=== PATIENT | female | born 1960 | race Caucasian/White ===

== ENCOUNTER → 2016-08-02 | Outpatient (CLI) | payer BC ==
--- NOTE | 2016-08-02 13:57 | MAMMOGRAPHY REPORT ---
BILATERAL DIGITAL SCREENING MAMMOGRAM WITH CAD: 08/02/2016 CLINICAL HISTORY: Routine screening. Patient has no complaints. TECHNIQUE: Current study was also evaluated with a Computer Aided Detection (CAD) system. Bilatera l CC and MLO views were obtained. COMPARISON: Comparison is made to exams dated: 07/31/2015 mammogram, 07/21/2013 mammogram, 07/16/2012 m ammogram, 07/11/2011 mammogram, 07/06/2010 mammogram, and 07/05/2009 mammogram - [facility]. BREAST COMPOSITION: There are scattered areas of fibroglandular density in both breasts. FINDINGS: No suspicious masses, calcifications, or areas of architectural distortion are noted in e ither breast. There has been no significant interval change compared to prior exams. IMPRESSION: ACR BI-RADS CATEGORY 1: NEGATIVE There is no mammographic evidence of malignancy. A 1 year screening mammogram is recommended. The p atient will receive written notification of the results. Approximately 10% of breast cancers are not detected with mammography. A negative mammographic repor t should not delay biopsy if a clinically suggestive mass is present. Sabrina Lara M.D. /:08/02/2016 07:50:31 Agricultural Specialist: Deisi KERN(R)(M), [facility] letter sent: Normal 1/2 BI-RADS Code: ACR BI-RADS Category 1: Negative
== END | disposition home or self-care (01) ==
LOC: C.MAMM 07:31
PROVIDERS: ATTEND Student in an Organized Health Care Education/Training Program
DX: Z12.31 Encounter for screening mammogram for malignant neoplasm of breast (principal)

== ENCOUNTER → 2017-09-05 | Outpatient (CLI) | payer OTHER ==
--- NOTE | 2017-09-05 15:04 | MAMMOGRAPHY REPORT ---
BILATERAL DIGITAL SCREENING MAMMOGRAM TOMOSYNTHESIS WITH CAD: 09/05/2017 CLINICAL HISTORY: Routine screening. Patient has no complaints. TECHNIQUE: Breast tomosynthesis in addition to standard 2D mammography was performed. Current study was also evaluated with a Computer Aided Detection (CAD) system. COMPARISON: Comparison is made to exams dated: 08/02/2016 mammogram, 07/31/2015 mammogram, 07/27/2014 m ammogram, 07/21/2013 mammogram, 07/16/2012 mammogram, and 07/11/2011 mammogram - [facility]. BREAST COMPOSITION: There are scattered areas of fibroglandular density in both breasts. FINDINGS: No suspicious masses, calcifications, or areas of architectural distortion are noted in ei ther breast. There has been no significant interval change compared to prior exams. IMPRESSION: ACR BI-RADS CATEGORY 1: NEGATIVE There is no mammographic evidence of malignancy. A 1 year screening mammogram is recommended. The pa tient will receive written notification of the results. Approximately 10% of breast cancers are not detected with mammography. A negative mammographic report should not delay biopsy if a clinically suggestive mass is present. Sabrina Lara M.D. ah/:09/05/2017 07:43:09 Vending Machine Assembler: Jelena KERN(Viki)(M), [facility] letter sent: Normal 1/2 BI-RADS Code: ACR BI-RADS Category 1: Negative
== END | disposition home or self-care (01) ==
LOC: C.MAMM 07:18
PROVIDERS: ATTEND Student in an Organized Health Care Education/Training Program
DX: Z12.31 Encounter for screening mammogram for malignant neoplasm of breast (principal)

== ENCOUNTER 2019-06-22 04:43 | Observation (INO) ==
--- NOTE | 2019-06-15 14:02 | PAT Medication Instructions ---
Medication Instructions Date of Service June 15, 2019 Home Medications simvastatin 20 mg tablet 20 mg PO QPM trazodone 50 mg tablet 50 mg PO HS venlafaxine 150 mg capsule,extended release 24 hr 150 mg PO QAM Fish Oil 1 cap PO QAM multivitamin 1 tab PO QAM STOP taking 2 weeks before surgery (or as soon as possible if surgery is within 2 weeks) Fish Oil 1 cap PO QAM Take morning of surgery With a small sip of water, OTHERWISE NOTHING TO EAT OR DRINK AFTER MIDNIGHT: venlafaxine 150 mg capsule,extended release 24 hr 150 mg PO QAM Take evening before surgery simvastatin 20 mg tablet 20 mg PO QPM trazodone 50 mg tablet 50 mg PO HS Other Notes If you have any questions please call us at [phone] or [phone] or [phone] or [phone]
--- NOTE | 2019-06-16 08:51 | Anesthesiology Consultation ---
Date of Service June 16, 2019 Assessment & Plan (1) Encounter for pre-operative examination: Chart Review Chart Review: Acceptable Risk for Surgery and Patient seen in Pre Admission Testing Teaching & Discussion Pre-Anesthesia Teaching/Discussion Notes: Instructed NPO after midnight before surgery,except medications with 15 cc of water. Medication instructions provided according to the PAT guidelines. History Surgery Operation Date: 06/22/19 10:40 Proposed Procedures p Right Total Hip Arthroplasty - Berto Acosta MD Height/Weight Height: 5 ft 4 in Weight: 76.1 kg Allergies Allergy/AdvReac Type Severity Reaction Status Date / Time codeine Allergy Mild NAUSEA Verified 06/15/19 10:16 Medications Home Medications Medication Instructions Recorded Confirmed Last Taken simvastatin 20 mg tablet 20 mg PO QPM 06/14/19 06/15/19 Unknown trazodone 50 mg tablet 50 mg PO HS 06/14/19 06/15/19 Unknown venlafaxine 150 mg 150 mg PO QAM 06/14/19 06/15/19 Unknown capsule,extended release 24 hr Fish Oil 1 cap PO QAM 06/15/19 06/15/19 Unknown multivitamin 1 tab PO QAM 06/15/19 06/15/19 Unknown Past Medical History Medical History Degenerative joint disease of right hip Depression Hyperlipidemia Osteoarthritis Sleep apnea CPAP Temporomandibular joint disorder rare, remote locking, + clicking Exercise / Class Metabolic Activity II 4-5 Yardwork/Stairs/Walk up hill Past Family History Family History Aunt Family history of diabetes mellitus Grandmother (Maternal) Family history of diabetes mellitus Other No family history of adverse response to anesthesia Past Surgical History Surgical History History of colonoscopy History of excision of pilonidal cyst History of surgery PLANTAR FASCIA RELEASE History of wisdom tooth extraction Past Anesthesia History No Hx of Anesthesia Complications and No Family Hx of Anesthesia Complications History of PONV No Hx of PONV and Hx of Motion Sickness Social History Smoking Status: Former smoker Do You Dip or Chew Tobacco: No Smoking End Date: QUIT MANY YEARS AGO Hx Alcohol Use: Yes Alcohol type: wine alcohol intake frequency: a few times a month Hx Substance Use: No substance use type: does not use Review of Systems Patient denies chest pain, shortness of breath, dyspnea on exertion, reflux, cough, wheezing, palpitations. Physical Exam Vital Signs VITALS BP 112/77 P 93 TEMP 98.4 SP02 97%RA RESP 18 PHYSICAL Full neck and c-spine range of motion. Full TMJ range of motion. TMD 3.5 finger breaths Mallampati Score 3 Dentition: missing molars, several crowns on molars Lungs: clear throughout to auscultation Cardiac: regular rate and rhythm, no murmurs noted Spine: normal Carotid arteries: negative bruit Extremities: no edema Testing Laboratory Results PT 10.3 Seconds (9.0-12.0) 06/16/19 09:06 INR 1.0 (0.9-1.1) 06/16/19 09:06 APTT 24.8 Seconds (21.0-31.0) 06/16/19 09:06 Blood Type A Positive 06/16/19 09:06 Antibody Screen NEGATIVE 06/16/19 09:06 06/14/19 WBC 4.0 H/H 12.9/38.7 PLATELETS 235 SODIUM 138 POTASSIUM 3.9 CHLORIDE 103 CO2 30 BUN 16 CREATININE 0.83 GLUCOSE 90 Electrocardiogram Date: 06/16/19 Findings: + NSR @ (89) Chest X-Ray Date: 06/16/19 Findings: + NAD
--- NOTE | 2019-06-16 09:31 | XRay Report ---
XR chest Pre-admission PA/Lat CLINICAL HISTORY: Preoperative evaluation. COMPARISON STUDY: Chest radiograph October 25, 2010. FINDINGS: Lung volumes are normal. Lungs are clear. There is no pneumothorax or pleural effusion. Car diac size is normal. Mediastinal contours are normal. There is no evidence for pulmonary edema. IMPRESSION: No acute cardiopulmonary findings. ACT 112: Negative or not required by law. Electronically signed by: Angel Winchester M.D. 06/16/2019 9:30 AM
--- NOTE | 2019-06-16 10:25 | Electrocardiogram Report ---
Test Reason : Blood Pressure : / mmHG Vent. Rate : 089 BPM Atrial Rate : 089 BPM P-R Int : 126 ms QRS Dur : 094 ms QT Int : 352 ms P-R-T Axes : 058 071 055 degrees QTc Int : 428 ms Normal sinus rhythm Normal ECG When compared with ECG of 15-OCT-2010 08:30, No significant change was found Confirmed by Kristopher Powers ([id number]) on 06/16/2019 10:24:38 AM Referred By: Berto Acosta Confirmed By:Kristopher Powers
[2019-06-16 10:44] LABS: Partial Thromboplastin Ratio 0.9; Partial Thromboplastin Time 24.8 Seconds (21.0-31.0); Prothrombin Time 10.3 Seconds (9.0-12.0)
[2019-06-22] MEDS ORDERED: METOCLOPRAMIDE HCL 10 MG TABLET PO SCH (06:00)
[2019-06-22] MEDS ORDERED: GABAPENTIN 600 MG DOSE PO SCH (06:00)
[2019-06-22] MEDS ORDERED: TRANEXAMIC ACID 1,000 MG **IV Pre-op IV SCH (06:00)
[2019-06-22] MEDS ORDERED: CEFAZOLIN 2000MG 2,000 MG/15 ML SYR IV SCH (06:00)
[2019-06-22] MEDS ORDERED: SCOPOLAMINE 1.5 MG TDSY TD SCH (06:00)
[2019-06-22] MEDS ORDERED: ACETAMINOPHEN 500 MG TAB PO SCH (06:00)
[2019-06-22] MEDS ORDERED: FAMOTIDINE 20 MG TAB PO SCH (06:00)
[2019-06-22] MEDS ORDERED: LR 60ML/HR IV SCH (06:00)
[2019-06-22] MEDS ORDERED: LR 500ML BOLUS, THEN 15ML/HR IV SCH (06:00)
[2019-06-22] MEDS ORDERED: BUPIVACAINE 0.5 % 5 MG/1 ML PF 10ML VIAL ONE (06:18)
[2019-06-22] MEDS ORDERED: MIDAZOLAM HCL 1 MG/ML 2ML VIAL ONE ×2 (06:27→07:01)
[2019-06-22] MEDS ORDERED: fentaNYL citrate 100 MCG/2 ML VIAL ONE (06:27)
[2019-06-22] MEDS ORDERED: BACITRACIN INJ 50,000 UNIT VIAL ONE (06:33)
[2019-06-22] MEDS ORDERED: EPINEPHrine INJ 1 MG/ML AMP ONE (06:34)
[2019-06-22] MEDS ORDERED: BUPIVACAINE 0.5 % 5 MG/1 ML MPF 30ML VIAL ONE ×2 (06:34→06:49)
[2019-06-22] MEDS ORDERED: MoRPHine SULFATE PF 1 MG/ML 10 ML AMP/VIAL ONE (06:42)
--- NOTE | 2019-06-22 06:51 | History & Physical Bridge Note ---
Date of Service June 22, 2019 History & Physical Bridge Note I have examined the patient, reviewed the History & Physical and in the interval since the performance of the History & Physical I have noted the following changes of clinical significance: no changes noted
[2019-06-22] MEDS ORDERED: PROMETHAZINE HCL 12.5 MG in SODIUM CHLORIDE 0.9% 50 ML IV PRN (06:57)
[2019-06-22] MEDS ORDERED: ePHEDrine sulfate 50 MG/ML AMP IV PRN (06:57)
[2019-06-22] MEDS ORDERED: MEPERIDINE HCL 25 MG/ML CARP IV PRN (06:57)
[2019-06-22] MEDS ORDERED: NALBUPHINE HCL INJ 10 MG/ML AMP IV PRN (06:57)
[2019-06-22] MEDS ORDERED: NALOXONE HCL 0.4 MG/1 ML VIAL/CARP IV PRN ×2 (06:57→09:59)
[2019-06-22] MEDS ORDERED: KETOROLAC 30 MG/ML VIAL IV PRN (06:57)
[2019-06-22] MEDS ORDERED: DiphenhydrAMINE HCL 50 MG/ML VIAL IV PRN (06:57)
[2019-06-22] MEDS ORDERED: NALOXONE HCL 0.08 MG in SYRINGE 1.8 ML IV PRN (06:57)
[2019-06-22] MEDS ORDERED: MoRPHine SULFATE PF 1 MG/ML 10 ML AMP/VIAL INT SPINAL ONE (06:57)
[2019-06-22] MEDS ORDERED: ONDANSETRON INJ 2 MG/ML 2 ML VIAL IV PRN (06:57)
[2019-06-22] MEDS ORDERED: NALOXONE HCL 1 MG in SODIUM CHLORIDE 0.9% 1000ML 1,000 ML IV PRN (06:57)
[2019-06-22] MEDS ORDERED: LACTATED RINGER'S 500 ML IV PRN (06:57)
[2019-06-22] MEDS ORDERED: DC INTRASPINAL MORPHINE SCH (07:00)
[2019-06-22] MEDS ORDERED: NO NARCOTICS OR SEDATIVES SCH (07:00)
[2019-06-22] MEDS ORDERED: SODIUM CHLORIDE 0.9% 1000ML 1,000 ML IV SCH (07:00)
[2019-06-22] MEDS ORDERED: PROPOFOL IV EMULSION 10 MG/ML 20 ML VIAL IV ONE ×2 (07:03→07:22)
[2019-06-22] MEDS ORDERED: ONDANSETRON INJ 2 MG/ML 2 ML VIAL ONE (07:22)
[2019-06-22] MEDS ORDERED: PHENYLEPHRINE 100MCG/ML 5ML SYR ONE (08:12)
--- NOTE | 2019-06-22 08:27 | Post Operative Brief Note ---
PG Immediate Post Op with CF Date of Surgery June 22, 2019 Pre & Post Diagnosis Operation Date: 06/22/19 07:00 Pre-Op Diagnosis: Right Hip Degenerative Joint Disease Post-Op Diagnosis: Right Hip Degenerative Joint Disease I identified the patient and participated in the time-out.: Yes Procedure Operation Date: 06/22/19 07:00 Actual Procedures p Right Total Hip Arthroplasty, uncemented(Right) - Berto Acosta MD Surgeon Berto Acosta MD Skip Miner Gómez, PAC Estimated Blood Loss 300 Findings Consistent with Post-Op Diagnosis Fluids 600 cc Specimens Specimen Description: Permanent specimen A: right femoral head Drains Montesinos Catheter (16fr montesinos catheter placed by Nicola Magaña PA-C, without difficulty; montesinos demonstrates clear yellow urine. Output measured and recorded by anesthesia.) Anesthesia Type Spinal MAC Complications none Disposition Accompanied Patient To Recovery: Yes Disposition: Recovery Room
--- NOTE | 2019-06-22 08:39 | Operative Report ---
Post Operative Report Pre & Post Diagnosis Operation Date: 06/22/19 07:00 Pre-Op Diagnosis: Right Hip Degenerative Joint Disease Post-Op Diagnosis: Right Hip Degenerative Joint Disease I identified the patient and participated in the time-out.: Yes Procedure Operation Date: 06/22/19 07:00 Actual Procedures p Right Total Hip Arthroplasty, uncemented(Right) - Berto Acosta MD Surgeon Berto Acosta MD Case Aide Gómez, PAC Estimated Blood Loss 300 Findings Consistent with Post-Op Diagnosis Operative findings revealed advanced right hip DJD. She had fairly extensive grade 4 disease of the femoral head and acetabulum. Not a lot of osteophyte formation. She had a moderate-sized joint effusion. Fluids 600 cc Specimens Right femoral head sent for pathology. Drains None. Anesthesia Type Spinal MAC Complications none Disposition Accompanied Patient To Recovery: Yes Disposition: Recovery Room Indications Patient is a 59-year-old female is about a 1 year history of gradually and progressively increasing right hip pain discomfort. She is been through extensive conservative treatment quitting injections as well as oral medicines. This became less successful over time. X-rays showed significant hip arthritic progression over the past year. She elected to proceed with total hip arthroplasty. Description of Procedure Operative implants consist of: 1. Biomet G7 size 50 mm acetabular shell. 2. 6.5 cancellus acetabular screws 1 of 35 mm length and 1 to 20 mm length. 3. Highly cross-linked polyethylene liner with a 50 mm outer diameter and 32 mm inner diameter. 4. [place] hole eliminator. 5. [place] Corail size 8 standard collared cementless femoral stem with a short neck. 6. +5/32 mm ceramic articular ball. Patient was taken to the operating room identified and placed on the operating table supine position protectors were properly padded. IV antibiotics were provided by anesthesia team. A spinal anesthetic had been implemented in the holding area. Reid catheter was placed in sterile fashion with patient then placed in the left lateral decubitus position. An axillary roll was placed. Stulberg hip positioner was used for positioning. The right hip and leg were then prepped and draped in the usual sterile fashion. A posterior lateral approach to the right hip was then performed through a curvilinear incision centered over the greater trochanter. Sharp dissection was Through subcutaneous tissue down below the IT band gluteal fascia the IT band gluteal fascia were then incised longitudinally in line with the skin incision. The underlying greater truck bursa was excised. The piriformis and external rotators and the posterior capsule were then released from the posterior aspect of the hip joint as a single layer. Great care was taken throughout the procedure to protect the sciatic nerve at all times. Hip was internally rotated and dislocated. A femoral neck osteotomy cut was made with Final Cut 10 mm above the lesser trochanter. Femoral head was removed and sent for pathology. The femur was retracted anteriorly. Attention drawn the acetabulum. The acetabular labrum was excised. The pulmonary fat was excised. Sequential reaming the acetabular was then performed begin with size 43 and progressing up to 49. A 50 mm Biomet G7 acetabular shell was then placed in about 40 degrees lateral opening and 20 degrees of anteversion. I could not quite get this the seat in the acetabulum perfectly but it was wedged and very tightly fixed we elected to except this. The cup was then fixed with two 6.5 cancellus acetabular screws. Trial liner was placed. Attention drawn the femur. The proximal femur was entered with a cookie-cutter followed by canal finder. I broached begin the size 8. We had difficulty even get the 8 down. She had very good cancellus bone. We had excellent rotational stability. I then used a calcar reamer to smooth off the calcar. The hip was then trialed and the +5/32 mm articular ball seem to re-create leg lengths appropriately and soft tissue tension appropriately. The hip was fully stable in full extension and external rotation and flexion to 90 degrees and internal rotation over [address] I elected to place these implants. All trial implants were removed. An apex hole eliminator was placed. Highly cross-linked polyethylene liner was placed. A [place] Corail size 8 standard collared stem with a short neck was then impacted in position. Once again, I could not quite get this down to the calcar cut but we elect to accept this as there was excellent rotational stability and good fixation. I then placed a +5/32 mm ceramic articular ball. It was located once again found to be stable. Attention drawn toward closing. The wound was irrigated cups out to pulsatile lavage solution. I did inject locally with 60 cc of 5% Marcaine with epinephrine. The posterior capsule and external rotators were then repaired through drill holes in the posterior trochanter with #2 Tycron suture. The IT band gluteal fascia then closed in 1 PDS suture in running fashion the subcutaneous tissue was then closed with 2 layers the deep layer #2 Vicryl suture in a buried interrupted fashion the subcutaneous tissues with 2-0 Dexon suture in buried interrupted fashion the skin was closed skin justice. Legs then cleaned dried a sterile dressing composed of Xeroform, 4 x 4's, sterile ABD pad and foam tape was applied. Patient then transferred to the recovery room in stable condition. Patient tolerated the procedure well there are no complications. I attest to the content of the Intraoperative Record and any orders documented therein. Any exceptions are noted below.
--- NOTE | 2019-06-22 08:59 | XRay Report ---
XR hip 1V RT w pelvis HISTORY: 59 years-old Female IN PACU - A/P PELVIS and LATERAL HIP right hip total joint arthroplast y. History of degenerative joint disease COMPARISON: Pelvis radiograph 06/28/2017 TECHNIQUE: AP view of the pelvis with crosstable lateral view of the right hip FINDINGS: Right hip total joint arthroplasty demonstrates satisfactory alignment without acute fracture. Latera l skin justice are noted along with expected postsurgical soft tissue swelling and deep tissue air. N o retained foreign body identified. Mild to moderate left hip osteoarthritis. IMPRESSION: Satisfactory alignment of the right hip total joint arthroplasty. ACT 112: Negative or not required by law. The above report was generated using voice recognition software. It may contain grammatical, syntax o r spelling errors. Electronically signed by: Kimo Quinteros M.D. 06/22/2019 8:58 AM
--- NOTE | 2019-06-22 09:25 | Anesthesiology Progress Note ---
Date of Service June 22, 2019 Anesthesia Post Procedure Vital Signs Vital Signs: Temp Pulse Pulse Resp BP BP Pulse Ox 06/22/19 09:15 89 13 112/70 92 06/22/19 09:05 36.1 C L 86 13 122/65 93 06/22/19 08:55 87 10 L 116/70 94 06/22/19 08:45 87 13 130/69 98 06/22/19 08:35 92 H 22 125/71 98 06/22/19 08:27 36.2 C L 100 H 22 111/89 100 06/22/19 05:15 36.7 C 88 20 139/93 98 Pain Intensity Right Hip: Pain Intensity: 0 Transfer of Care Handoff Completed per policy Notes Mental Status: alert / awake / arousable Patient Amnestic to Procedure: Yes Nausea / Vomiting: adequately controlled Pain: adequately controlled Airway Patency, RR, SpO2: stable & adequate BP & HR: stable & adequate Hydration State: stable & adequate Neuraxial Anesthesia: was administered and sensory block is resolving Anesthetic Complications: no major complications apparent
[2019-06-22] MEDS ORDERED: MAGNESIUM HYDROXIDE SUSP 30 ML UDC PO PRN (09:59)
[2019-06-22] MEDS ORDERED: MULTIVITAMIN TAB PO SCH (09:59)
[2019-06-22] MEDS ORDERED: bisacodyL 10 MG SUPP PR PRN (09:59)
[2019-06-22] MEDS ORDERED: ALUMINUM/MAGNESIUM SUSP 30 ML UDC PO PRN (09:59)
[2019-06-22] MEDS: SODIUM CHLORIDE 0.9% 1000ML 1,000 ML IV SCH ×2 (11:46→20:21)
[2019-06-22] MEDS: MULTIVITAMIN TAB PO SCH (11:47)
[2019-06-22] MEDS: DOCUSATE SODIUM 100 MG CAP PO SCH ×2 (11:47→20:22)
[2019-06-22] MEDS: ASPIRIN 81 MG ECTAB PO SCH ×2 (11:47→20:22)
[2019-06-22] MEDS: ACETAMINOPHEN 500 MG TAB PO SCH ×2 (13:32→22:09)
[2019-06-22] MEDS ORDERED: TRANEXAMIC ACID / 0.7% NACL 1,000 MG/100 ML BAG IV SCH (14:30)
[2019-06-22] MEDS: CHECK SCOPOLAMINE PATCH PLACEMENT SCH ×2 (15:00→23:51)
[2019-06-22] MEDS: CEFAZOLIN 1000MG 1,000 MG/7.5 ML SYR IV SCH ×2 (15:00→22:09)
[2019-06-22] MEDS: FERROUS GLUCONATE 324 MG TAB PO SCH (17:53)
[2019-06-22] MEDS: ASCORBIC ACID 500 MG TAB PO SCH (17:53)
[2019-06-22] MEDS: SIMVASTATIN 20 MG TAB PO SCH (20:21)
[2019-06-22] MEDS: SENNA 8.6 MG TAB PO SCH (20:22)
[2019-06-22] MEDS: TRAZODONE HCL 50 MG TAB PO SCH (20:23)
[2019-06-23] MEDS: KETOROLAC 30 MG/ML VIAL IV SCH ×4 (00:03→19:01)
[2019-06-23] MEDS ORDERED: METOCLOPRAMIDE HCL INJ 5 MG/ML 2 ML VIAL IV PRN (01:00)
[2019-06-23] MEDS ORDERED: ONDANSETRON INJ 2 MG/ML 2 ML VIAL IV PRN (01:00)
[2019-06-23] MEDS ORDERED: HYDROmorphone INJ 0.5 MG/0.5 ML SYR IV PRN (01:00)
[2019-06-23] MEDS ORDERED: TRAMADOL HCL 50 MG TABLET PO PRN (01:00)
[2019-06-23 05:44] LABS: Basophils # (auto) 0.01 K/uL (0-0.2); Basophils % (auto) 0.2 %; Eosinophils # (auto) 0.13 K/uL (0-0.5); Eosinophils % (auto) 2.3 %; Hematocrit (blood only) 28.5 % (37-47); Hemoglobin 8.9 g/dL (12.0-16.0); Immature Granulocytes # (auto) 0.01 K/uL (0.00-0.02); Immature Granulocytes % (auto) 0.2 %; Lymphocytes # (auto) 0.98 K/uL (1.2-3.4); Lymphocytes % (auto) 17.2 %; Mean Corpuscular Hgb Conc 31.2 g/dL (32-36); Mean Platelet Volume 8.6 fL (7.4-10.4); Monocytes # (auto) 0.57 K/uL (0.11-0.59); Neutrophils # (auto) 4.01 K/uL (1.4-6.5); Neutrophils % (auto) 70.1 %; Platelet Count 151 K/uL (130-400); RDW Coefficient of Variation 12.4 % (11.5-14.5); RDW Standard Deviation 43.5 fL (36.4-46.3); Red Blood Count 2.97 M/uL (4.2-5.4); White Blood Count 5.71 K/uL (4.8-10.8)
[2019-06-23] MEDS: ACETAMINOPHEN 500 MG TAB PO SCH ×3 (06:05→21:03)
[2019-06-23 06:22] LABS: Calcium 8.2 mg/dl (8.5-10.1); Potassium 4.2 mmol/L (3.5-5.1)
[2019-06-23 06:33] LABS: BUN Creatinine Ratio 19.3 (10-20); Creatinine Clr Calc Pharmacy 69.6 ml/min; Est GFR (African American) 86.9
--- NOTE | 2019-06-23 07:57 | Anesthesiology Progress Note ---
Date of Service June 23, 2019 Anesthesia Post Procedure Vital Signs Vital Signs: Temp Pulse Pulse Pulse Pulse Pulse Resp 06/23/19 07:46 36.8 C 87 12 06/23/19 04:30 16 06/23/19 03:30 36.9 C 90 16 06/23/19 02:30 18 06/23/19 01:30 16 06/23/19 00:28 16 06/22/19 23:30 36.9 C 99 H 16 06/22/19 22:30 18 06/22/19 22:00 20 06/22/19 20:30 18 06/22/19 20:19 37.7 C H 95 H 16 06/22/19 19:33 20 06/22/19 19:32 17 06/22/19 18:34 18 06/22/19 18:30 18 06/22/19 17:34 18 06/22/19 16:37 17 06/22/19 15:39 18 06/22/19 15:21 37.1 C 107 H 16 06/22/19 14:30 18 06/22/19 12:26 36.6 C 91 H 16 06/22/19 11:33 36.4 C L 83 17 06/22/19 10:30 36.4 C L 90 16 06/22/19 10:00 36.4 C L 77 16 06/22/19 09:30 36.4 C L 88 19 06/22/19 09:15 89 13 06/22/19 09:05 36.1 C L 86 13 06/22/19 08:55 87 10 L 06/22/19 08:45 87 13 06/22/19 08:35 92 H 22 06/22/19 08:27 36.2 C L 100 H 22 BP BP Pulse Ox 06/23/19 07:46 112/62 95 06/23/19 04:30 95 06/23/19 03:30 97/64 L 95 06/23/19 02:30 96 06/23/19 01:30 96 06/23/19 00:28 96 06/22/19 23:30 100/66 95 06/22/19 22:30 95 06/22/19 22:00 94 06/22/19 20:30 95 06/22/19 20:19 109/69 94 06/22/19 19:33 96 06/22/19 19:32 95 06/22/19 18:34 95 06/22/19 18:30 96 06/22/19 17:34 95 06/22/19 16:37 99 06/22/19 15:39 100 06/22/19 15:21 115/74 99 06/22/19 14:30 100 06/22/19 12:26 108/71 100 06/22/19 11:33 115/77 100 06/22/19 10:30 126/80 100 06/22/19 10:00 112/71 95 06/22/19 09:30 110/73 96 06/22/19 09:15 112/70 92 06/22/19 09:05 122/65 93 06/22/19 08:55 116/70 94 06/22/19 08:45 130/69 98 06/22/19 08:35 125/71 98 06/22/19 08:27 111/89 100 Pain Intensity Right Hip: Pain Intensity: 2 Notes Mental Status: alert / awake / arousable and participated in evaluation Patient Amnestic to Procedure: Yes Nausea / Vomiting: adequately controlled Pain: adequately controlled Airway Patency, RR, SpO2: stable & adequate BP & HR: stable & adequate Hydration State: stable & adequate Neuraxial Anesthesia: was administered and sensory block resolved Anesthetic Complications: no major complications apparent and Pt Satisfied with anesthetic care
[2019-06-23] MEDS: OMEGA-3 (PURIFIED FISH OIL) 1 GM CAP PO SCH (08:52)
[2019-06-23] MEDS: VENLAFAXINE HCL XR 150 MG CAPXR PO SCH (08:52)
[2019-06-23] MEDS: ASCORBIC ACID 500 MG TAB PO SCH ×2 (08:52→18:00)
[2019-06-23] MEDS: FERROUS GLUCONATE 324 MG TAB PO SCH ×2 (08:52→18:00)
[2019-06-23] MEDS: MULTIVITAMIN TAB PO SCH (08:52)
[2019-06-23] MEDS: ASPIRIN 81 MG ECTAB PO SCH ×2 (08:53→21:03)
[2019-06-23] MEDS: DOCUSATE SODIUM 100 MG CAP PO SCH ×2 (08:53→21:02)
--- NOTE | 2019-06-23 19:18 | Progress Note ---
DATE: 06/23/2019 SUBJECTIVE: A 59-year-old white female postop day 1 from right hip replacement. She is doing pretty well. She describes mostly just muscle soreness. No chest pain or shortness of breath. Not feeling dizzy or lightheaded. OBJECTIVE: VITAL SIGNS: Temperature is 37.7. Vital signs stable. GENERAL: Shows a pleasant, middle-aged female. She is sitting in bed and looks pretty comfortable. LUNGS: Clear to auscultation. HEART: Regular rate and rhythm. ABDOMEN: Soft, nontender, nondistended. EXTREMITIES: Grossly neurovascularly intact except as follows: Examination of the right lower extremity reveals the leg to be well aligned. Leg lengths were equal. Hip is located. Dressing is clean, dry and intact. Thigh is soft and supple. She is neurologically intact. LABORATORY DATA: Hemoglobin 8.9. Hematocrit 28.5. Electrolytes are stable. ASSESSMENT: A 59-year-old female postoperative day 1 from right hip replacement, doing pretty well. Pain is controlled. Hip is located. She is neurologically intact. She is anemic, but without symptoms. PLAN: 1. DVT prophylaxis including thigh-high TEDs, SCDs, and aspirin twice a day. 2. PT/OT. Weight bear as tolerated. Right total hip protocol. 3. Pain control, doing well with current pain regimen. 4. Anemia. Currently, asymptomatic. We will continue iron supplementation. 5. Disposition: Plan to discharge her home with some home health once adequately recovered and medically stable.
[2019-06-23] MEDS: TRAZODONE HCL 50 MG TAB PO SCH (21:02)
[2019-06-23] MEDS: SENNA 8.6 MG TAB PO SCH (21:02)
[2019-06-23] MEDS: SIMVASTATIN 20 MG TAB PO SCH (21:02)
[2019-06-24] MEDS: KETOROLAC 30 MG/ML VIAL IV SCH ×2 (00:16→05:29)
[2019-06-24 05:23] LABS: Basophils # (auto) 0.01 K/uL (0-0.2); Basophils % (auto) 0.1 %; Eosinophils # (auto) 0.25 K/uL (0-0.5); Eosinophils % (auto) 3.6 %; Hemoglobin 9.2 g/dL (12.0-16.0); Immature Granulocytes # (auto) 0.01 K/uL (0.00-0.02); Immature Granulocytes % (auto) 0.1 %; Lymphocytes # (auto) 0.82 K/uL (1.2-3.4); Lymphocytes % (auto) 11.8 %; Mean Corpuscular Hemoglobin 31.2 pg (25-34); Mean Corpuscular Hgb Conc 32.9 g/dL (32-36); Mean Corpuscular Volume 94.9 fL (80-100); Mean Platelet Volume 8.5 fL (7.4-10.4); Monocytes # (auto) 0.49 K/uL (0.11-0.59); Monocytes % (auto) 7.1 %; Neutrophils # (auto) 5.36 K/uL (1.4-6.5); Neutrophils % (auto) 77.3 %; Platelet Count 144 K/uL (130-400); RDW Coefficient of Variation 12.6 % (11.5-14.5); RDW Standard Deviation 43.6 fL (36.4-46.3); Red Blood Count 2.95 M/uL (4.2-5.4); White Blood Count 6.94 K/uL (4.8-10.8)
[2019-06-24] MEDS: ACETAMINOPHEN 500 MG TAB PO SCH (05:29)
[2019-06-24] MEDS: MULTIVITAMIN TAB PO SCH (07:47)
[2019-06-24] MEDS: VENLAFAXINE HCL XR 150 MG CAPXR PO SCH (07:47)
[2019-06-24] MEDS: FERROUS GLUCONATE 324 MG TAB PO SCH (07:47)
--- NOTE | 2019-06-24 07:47 | Progress Note ---
DATE: 06/24/2019 SUBJECTIVE: A 59-year-old female postop day 2 from right total hip replacement. She is doing pretty well. Pain has been controlled. No chest pain or shortness of breath. Not feeling dizzy or lightheaded. OBJECTIVE: VITAL SIGNS: Temperature 36.9. Vital signs stable. GENERAL: Shows a pleasant, middle-aged female. She is sitting up in her bedside chair, looks comfortable. EXTREMITIES: Examination of the right hip and leg reveals the leg lengths to be equal. Dressing is clean, dry and intact. Thigh is soft and supple. She is neurologically intact. ASSESSMENT: A 59-year-old female postop day 2 from right hip replacement, doing well. Pain is controlled. Hip is located. She is neurologically intact. Her hemoglobin is improved at 9.2. PLAN: 1. DVT prophylaxis include thigh-high TEDs, SCDs and aspirin twice a day. 2. PT/OT. Weight bear as tolerated. Right total hip protocol. 3. Pain control, doing well with current pain regimen. 4. Anemia. Currently asymptomatic. Hemoglobin is stable and actually increased. Continue iron supplementation. 5. Disposition. Plan to discharge to home later today.
[2019-06-24] MEDS: DOCUSATE SODIUM 100 MG CAP PO SCH (07:48)
[2019-06-24] MEDS: OMEGA-3 (PURIFIED FISH OIL) 1 GM CAP PO SCH (07:48)
[2019-06-24] MEDS: ASPIRIN 81 MG ECTAB PO SCH (07:48)
[2019-06-24] MEDS: ASCORBIC ACID 500 MG TAB PO SCH (07:49)
--- NOTE | 2019-06-28 15:42 | Discharge Summary ---
ADMITTING PHYSICIAN AND SURGEON: Dr. Berto Acosta. ADMITTING DIAGNOSIS: Right hip degenerative joint disease. SURGERY PERFORMED: Right total hip arthroplasty. SECONDARY DIAGNOSES: Elevated cholesterol, sleep apnea, mild depression and neck pain. CONSULTS: None obtained. HISTORY AND PHYSICAL EXAMINATION: Well documented in the patient's chart. HOSPITAL COURSE: The patient was admitted on 06/22/2019 underwent total hip arthroplasty, tolerated the procedure well. There were no complications. She was transferred to the PACU postoperatively and later to the orthopedic floor for further care. She was given aspirin for antibiotic prophylaxis, VINNIE stockings, SCDs and aspirin for DVT prophylaxis. Hemoglobin, hematocrit and vital signs were monitored during her hospital stay and remained stable. She did not require any blood transfusions. There were no complications during her hospital stay. She did have some postoperative anemia; she received an iron supplementation. By postoperative day 2, she was tolerating a regular diet, pain was controlled with oral pain medicine. She was participating in physical therapy. On postop day 2, she was discharged home. She was given printed discharge instructions as well as new prescriptions for extra strength Tylenol, aspirin, iron supplement and tramadol. Continue her home medicines. Continue physical therapy, weightbearing as tolerated, total hip precautions, VINNIE stockings. Follow up approximately 2 weeks postop or sooner if there are any problems or concerns.
== END 2019-06-24 11:17 | disposition home or self-care (01) | DRG 470 ==
LOC: ASU 04:43 → 3E 08:31 → INTOOBSV 08:31